=== PATIENT | male | born 1990 | race Caucasian/White ===

== ENCOUNTER 2019-11-09 11:47 | Outpatient (CLI) | payer OTHER, SELFPAY ==
--- NOTE | ~2019-11-09 | XR_ITS ---
XR lumbar spine 2-3V DATE: 11/09/2019 12:28 INDICATION: Low back pain. No injury. TECHNIQUE: AP, lateral and coned lateral lumbosacral views COMPARISON: None FINDINGS: Normal alignment of the lumbar spine. No fracture or dislocation or bone destruction. No spondylolisthesis. Lumbar and lumbosacral interspaces are well preserved. The sacroiliac joints are normal. IMPRESSION: Negative Reviewed, dictated and finalized at location B. IMPRESSION: Negative
--- NOTE | ~2019-11-09 | XR_ITS ---
EXAMINATION: XR knee LT 3V DATE: 11/09/2019 12:28 INDICATION: Left knee pain. TECHNIQUE: 3 views of left knee were obtained. COMPARISON: None. FINDINGS: Bone alignment is normal. No fracture. There is mild osteoarthritis of patellofemoral gomez rtment characterized by tiny marginal osteophyte. There is a moderate-sized knee joint effusion. IMPRESSION: 1. Mild left knee osteoarthritis. 2. Moderate-sized left knee joint effusion. Reviewed, dictated and finalized at location A.
[2019-11-09 12:42] LABS: Hematocrit 47.2 % (42.0-52.0); Hemoglobin 16.5 g/dL (14.0-18.0); Mean Corpuscular Hemoglobin 30.8 pg (26-34); Mean Corpuscular Volume 88.1 fl (80-100); Mean Platelet Volume 9.6 fl (7.4-10.4); Platelet Count Result 201 k/mm3 (150-375); Red Blood Count 5.36 M/mm3 (4.6-6.20); Red Cell Distribution Width 12.3 % (11.5-14.5); White Blood Count 3.4 K/mm3 (4.5-10.0)
[2019-11-09 12:56] LABS: Blood Urea Nitrogen 20 mg/dL (9-20); Calcium 9.6 mg/dL (8.4-10.2); Carbon Dioxide 27 mmol/L (22-30); Chloride 104 mmol/L (98-107); Cholesterol 171 mg/dL (0-200); Estimated Glomerular Filt Rate > 60; Glucose 100 mg/dL (75-110); HDL Direct 53 mg/dL; Potassium 4.4 mmol/L (3.4-5.0); Sodium 139 mmol/L (137-145); Triglycerides 58 mg/dL (<150)
[2019-11-09 13:06] LABS: LDL Cholesterol Direct 97 mg/dL
[2019-11-09 13:26] LABS: Vitamin D 25 Hydroxy 36.9 ng/mL
== END 2019-11-09 11:48 | disposition home or self-care (01) ==
PROVIDERS: PCP Family Medicine; Visit Provider Nurse Practitioner Family
DX: R53.83 Other fatigue (principal); Z13.220 Encounter for screening for lipoid disorders; Z13.1 Encounter for screening for diabetes mellitus; M54.9 Dorsalgia, unspecified; M25.569 Pain in unspecified knee; M17.12 Unilateral primary osteoarthritis, left knee; M25.462 Effusion, left knee
CPT/HCPCS: 36415; 72100; 73562; 80048; 80061; 82306; 82607; 84443; 85027

== ENCOUNTER → 2019-12-07 10:12 | Outpatient (CLI) | payer OTHER, SELFPAY ==
--- NOTE | ~2019-12-07 | MR_ITS ---
EXAMINATION: MR knee LT wo con DATE: 12/07/2019 10:50 INDICATION: Left knee pain TECHNIQUE: Magnetic resonance imaging (MRI) of the left knee was performed without intravenous contra st. Sequences included coronal PD-weighted FSE, coronal PD-weighted FS FSE, sagittal T2-weighted FSE , sagittal PD-weighted FS FSE and axial PD weighted fat saturated FSE. COMPARISON: None. FINDINGS: Medial compartment: Complex medial meniscal tear extending from the anterior to posterior horn including a laterally disp laced bucket-handle flap which extends anteroposteriorly along the medial side of the intercondylar n otch overlying the intercondylar eminence. There is an additional residual longitudinal horizontal te ar extending to the cephalad articular surface along the nondisplaced portion of the body and posteri or horn of the medial meniscus. Articular cartilage is normal. Lateral compartment: Lateral meniscus is normal. Articular cartilage is normal. Patellofemoral compartment: Articular cartilage is normal. Ligaments and tendons: Anterior and posterior cruciate ligaments are normal. The medial collateral ligament and fibular johana ateral ligament complex are normal. The extensor mechanism is normal. The visualized medial and later al hamstring tendons as well as the iliotibial band are normal. Fluid: Small knee joint effusion. No loose osteochondral bodies identified. Osseous/other: Normal marrow signal. 3 small bone islands in the lateral femoral condyle. No fracture or pathologic marrow replacing process. Mild scarring at the medial and lateral sides of Hoffa's fat pad likely rel ated to prior arthroscopy. IMPRESSION: 1. Complex tear of the medial meniscus including a displaced bucket-handle flap. Reviewed, dictated and finalized at location A. IMPRESSION: 1. Complex tear of the medial meniscus including a displaced bucket-handle flap .
== END ==
PROVIDERS: Visit Provider Nurse Practitioner Family
DX: S83.232A Complex tear of medial meniscus, current injury, left knee, initial encounter (principal); X58.XXXA Exposure to other specified factors, initial encounter
CPT/HCPCS: 73721

== ENCOUNTER 2024-08-09 13:18 | Outpatient (CLI) | payer OTHER, SELFPAY ==
--- NOTE | ~2024-08-09 | XR_ITS ---
EXAM/ PROCEDURE: XR knee RT 3V - 08/09/2024 13:22 CDT HISTORY: 34 years old Male with S89.90XA - Unspecified injury of unspecified lower leg, i... COMPARISON: None available TECHNIQUE: Three view(s) FINDINGS/ IMPRESSION: There are no fractures or dislocations.Joint spaces are within normal limits Reviewed, dictated and finalized at location A.
== END 2024-08-09 13:19 | disposition home or self-care (01) ==
PROVIDERS: PCP Family Medicine; Visit Provider Nurse Practitioner Family
DX: S89.90XA Unspecified injury of unspecified lower leg, initial encounter (principal); X58.XXXA Exposure to other specified factors, initial encounter
CPT/HCPCS: 73562